=== PATIENT | male | born 1960 | race Caucasian/White ===

== ENCOUNTER 2023-04-30 17:07 | Outpatient (RCR) | payer BC, SELFPAY | END 2023-04-30 23:59 | disposition home or self-care (01) | LOC: RPT 17:07 | PROVIDERS: ATTENDING PHYSICIAN Physician Assistant Medical; PRIMARYCARE PHYSICIAN Family Medicine | DX: M48.062 Spinal stenosis, lumbar region with neurogenic claudication (principal); M54.16 Radiculopathy, lumbar region; G12.21 Amyotrophic lateral sclerosis; Z73.6 Limitation of activities due to disability; Z98.1 Arthrodesis status; Z47.89 Encounter for other orthopedic aftercare; M62.81 Muscle weakness (generalized) | CPT/HCPCS: 97110; 97140 ==

== ENCOUNTER 2023-06-02 15:58 | Outpatient (RCR) | payer MEDICARE, OTHER, SELFPAY | END 2023-06-02 23:59 | disposition home or self-care (01) | LOC: RPT 15:58 | PROVIDERS: ATTENDING PHYSICIAN Psychiatry & Neurology Neurology; OTHER PHYSICIAN Physician Assistant Medical; PRIMARYCARE PHYSICIAN Family Medicine | DX: M48.062 Spinal stenosis, lumbar region with neurogenic claudication (principal); M54.16 Radiculopathy, lumbar region; Z98.1 Arthrodesis status; Z73.6 Limitation of activities due to disability; Z47.89 Encounter for other orthopedic aftercare; M62.81 Muscle weakness (generalized) | CPT/HCPCS: 97110; 97140; 97163 ==

== ENCOUNTER 2023-07-03 14:59 | Outpatient (RCR) | payer MEDICARE, OTHER, SELFPAY | END 2023-07-03 23:59 | disposition home or self-care (01) | LOC: RPT 14:59 | PROVIDERS: ATTENDING PHYSICIAN Psychiatry & Neurology Neurology; OTHER PHYSICIAN Physician Assistant Medical; PRIMARYCARE PHYSICIAN Family Medicine | DX: Z47.89 Encounter for other orthopedic aftercare (principal); G12.21 Amyotrophic lateral sclerosis; M48.062 Spinal stenosis, lumbar region with neurogenic claudication; M48.061 Spinal stenosis, lumbar region without neurogenic claudication; M54.16 Radiculopathy, lumbar region; Z73.6 Limitation of activities due to disability; M62.81 Muscle weakness (generalized); Z98.1 Arthrodesis status | CPT/HCPCS: 97110; 97140; 97530 ==

== ENCOUNTER 2023-07-21 15:07 | Outpatient (RCR) | payer MEDICARE, OTHER, SELFPAY | END 2023-07-21 23:59 | disposition home or self-care (01) | LOC: RPT 15:07 | PROVIDERS: ATTENDING PHYSICIAN Psychiatry & Neurology Neurology; OTHER PHYSICIAN Physician Assistant Medical; PRIMARYCARE PHYSICIAN Family Medicine | DX: M48.062 Spinal stenosis, lumbar region with neurogenic claudication (principal); G12.21 Amyotrophic lateral sclerosis; M54.16 Radiculopathy, lumbar region; Z73.6 Limitation of activities due to disability; Z47.89 Encounter for other orthopedic aftercare; Z98.1 Arthrodesis status; M62.81 Muscle weakness (generalized) | CPT/HCPCS: 97110; 97140 ==

== ENCOUNTER → 2023-08-12 12:03 | Outpatient (REF) | payer MEDICARE, OTHER, SELFPAY ==
[2023-08-12 13:24] LABS: % Basophils 0.7 % (0-2); % Immature Granulocytes 0.7 % (0-0.5); % Lymphocytes 21.6 % (20.5-51.1); % Monocytes 7.1 % (1.7-9.3); % Neutrophils 68.9 % (42.2-75.2); Absolute Basophils 0.1 10^3/uL (0-0.2); Absolute Eosinophils 0.1 10^3/uL (0-0.7); Absolute Immature Granulocytes 0.1 10^3/uL (0-0.05); Absolute Lymphocytes 1.9 10^3/uL (1.2-3.4); Absolute Monocytes 0.6 10^3/uL (0.1-0.6); Absolute Neutrophils 6.1 10^3/uL (1.4-6.5); Hematocrit 43.4 % (39.0-52.0); Hemoglobin 14.6 g/dL (13.0-18.0); Mean Corp Hgb Conc. 33.6 g/dL (33.0-37.0); Mean Corpuscular Hgb 30.3 pg (27.0-31.0); Mean Platelet Volume 9.7 fL (7.4-10.4); Nucleated Red Blood Cells % 0 % (-); Platelet Count 242 10^3/uL (130-400); Red Blood Cell Count 4.82 10^6/uL (4.70-6.10); Red Cell Dist. Width 12.9 % (11.5-14.5); White Blood Cell Count 8.8 10^3/uL (4.8-10.8)
[2023-08-12 13:51] LABS: ALT (SGPT) 45 U/L (0-50); AST (SGOT) 43 U/L (17-59); Albumin 3.9 g/dl (3.5-5.0); Alkaline Phosphatase 76 U/L (38-126); Blood Urea Nitrogen 25 mg/dl (9-20); Calcium 9.5 mg/dl (8.4-10.2); Carbon Dioxide 29 mmol/L (22-30); Chloride 101 mmol/L (98-107); Glucose 119 mg/dl (70-99); Sodium 138 mmol/L (135-145); Total Bilirubin 0.5 mg/dl (0.2-1.3); Total Protein 6.6 g/dl (6.3-8.2); eGFR > 60.00
[2023-08-12 13:56] LABS: Potassium 4.2 mmol/L (3.5-5.1)
== END ==
LOC: REG 12:03
PROVIDERS: ATTENDING PHYSICIAN Psychiatry & Neurology Neurology; FAMILY PHYSICIAN Family Medicine
DX: R53.1 Weakness (principal)
CPT/HCPCS: 36415; 80053; 85025

== ENCOUNTER 2023-09-01 15:03 | Outpatient (RCR) | payer MEDICARE, OTHER, SELFPAY | END 2023-09-01 23:59 | disposition home or self-care (01) | LOC: RPT 15:03 | PROVIDERS: ATTENDING PHYSICIAN Psychiatry & Neurology Neurology; OTHER PHYSICIAN Physician Assistant Medical; PRIMARYCARE PHYSICIAN Family Medicine | DX: Z47.89 Encounter for other orthopedic aftercare (principal); M48.062 Spinal stenosis, lumbar region with neurogenic claudication; M54.16 Radiculopathy, lumbar region; Z73.6 Limitation of activities due to disability; G12.21 Amyotrophic lateral sclerosis; M62.81 Muscle weakness (generalized); Z98.1 Arthrodesis status | CPT/HCPCS: 97110; 97140 ==

== ENCOUNTER 2023-10-02 15:12 | Outpatient (RCR) | payer MEDICARE, OTHER, SELFPAY | END 2023-10-02 23:59 | disposition home or self-care (01) | LOC: RPT 15:12 | PROVIDERS: ATTENDING PHYSICIAN Psychiatry & Neurology Neurology; OTHER PHYSICIAN Physician Assistant Medical; PRIMARYCARE PHYSICIAN Family Medicine | DX: M48.062 Spinal stenosis, lumbar region with neurogenic claudication (principal); G12.21 Amyotrophic lateral sclerosis; M54.16 Radiculopathy, lumbar region; Z98.1 Arthrodesis status; Z73.6 Limitation of activities due to disability; Z47.89 Encounter for other orthopedic aftercare; M62.81 Muscle weakness (generalized) | CPT/HCPCS: 97110; 97140 ==

== ENCOUNTER 2023-10-30 15:20 | Outpatient (RCR) | payer MEDICARE, OTHER, SELFPAY | END 2023-10-30 23:59 | disposition home or self-care (01) | LOC: RPT 15:20 | PROVIDERS: ATTENDING PHYSICIAN Psychiatry & Neurology Neurology; OTHER PHYSICIAN Physician Assistant Medical; PRIMARYCARE PHYSICIAN Family Medicine | DX: M48.062 Spinal stenosis, lumbar region with neurogenic claudication (principal); G12.21 Amyotrophic lateral sclerosis; Z98.1 Arthrodesis status; Z73.6 Limitation of activities due to disability; M54.16 Radiculopathy, lumbar region; Z47.89 Encounter for other orthopedic aftercare; M62.81 Muscle weakness (generalized) | CPT/HCPCS: 97110; 97140 ==

== ENCOUNTER 2023-11-17 14:51 | Outpatient (RCR) | payer MEDICARE, OTHER, SELFPAY | END 2023-11-17 23:59 | disposition home or self-care (01) | LOC: RPT 14:51 | PROVIDERS: ATTENDING PHYSICIAN Psychiatry & Neurology Neurology; OTHER PHYSICIAN Physician Assistant Medical; PRIMARYCARE PHYSICIAN Family Medicine | DX: M48.062 Spinal stenosis, lumbar region with neurogenic claudication (principal); M54.16 Radiculopathy, lumbar region; G12.21 Amyotrophic lateral sclerosis; Z73.6 Limitation of activities due to disability; Z98.1 Arthrodesis status; Z47.89 Encounter for other orthopedic aftercare; M62.81 Muscle weakness (generalized) | CPT/HCPCS: 97110; 97140 ==

== ENCOUNTER 2024-01-01 14:48 | Outpatient (RCR) | payer MEDICARE, OTHER, SELFPAY | END 2024-01-01 23:59 | disposition home or self-care (01) | LOC: RPT 14:48 | PROVIDERS: ATTENDING PHYSICIAN Psychiatry & Neurology Neurology; OTHER PHYSICIAN Physician Assistant Medical; PRIMARYCARE PHYSICIAN Family Medicine | DX: M48.062 Spinal stenosis, lumbar region with neurogenic claudication (principal); G12.21 Amyotrophic lateral sclerosis; M54.16 Radiculopathy, lumbar region; Z98.1 Arthrodesis status; Z73.6 Limitation of activities due to disability; Z47.89 Encounter for other orthopedic aftercare; M62.81 Muscle weakness (generalized) | CPT/HCPCS: 97110; 97140 ==

== ENCOUNTER 2024-02-02 14:50 | Outpatient (RCR) | payer MEDICARE, OTHER, SELFPAY | END 2024-02-02 23:59 | disposition home or self-care (01) | LOC: RPT 14:50 | PROVIDERS: ATTENDING PHYSICIAN Psychiatry & Neurology Neurology; OTHER PHYSICIAN Physician Assistant Medical; PRIMARYCARE PHYSICIAN Family Medicine | DX: G12.21 Amyotrophic lateral sclerosis (principal); M48.062 Spinal stenosis, lumbar region with neurogenic claudication; M54.16 Radiculopathy, lumbar region; Z98.1 Arthrodesis status; Z47.89 Encounter for other orthopedic aftercare; Z73.6 Limitation of activities due to disability; M62.81 Muscle weakness (generalized) | CPT/HCPCS: 97110; 97140 ==

== ENCOUNTER 2024-03-04 14:52 | Outpatient (RCR) | payer MEDICARE, OTHER, SELFPAY | END 2024-03-04 23:59 | disposition home or self-care (01) | LOC: RPT 14:52 | PROVIDERS: ATTENDING PHYSICIAN Psychiatry & Neurology Neurology; OTHER PHYSICIAN Physician Assistant Medical; PRIMARYCARE PHYSICIAN Family Medicine | DX: Z47.89 Encounter for other orthopedic aftercare (principal); M48.062 Spinal stenosis, lumbar region with neurogenic claudication (principal); M54.16 Radiculopathy, lumbar region; G12.21 Amyotrophic lateral sclerosis; Z73.6 Limitation of activities due to disability; M62.81 Muscle weakness (generalized); Z98.1 Arthrodesis status | CPT/HCPCS: 97110; 97112; 97140; 97167; 97535 ==

== ENCOUNTER → 2024-03-12 12:10 | Outpatient (REF) | payer MEDICARE, OTHER, SELFPAY ==
[2024-03-12 13:32] LABS: Urine Albumin Negative (Neg - Trace); Urine Bilirubin Negative (Negative); Urine Color Yellow; Urine Glucose Negative (Negative); Urine Ketone Negative (Negative); Urine Leukocyte Negative (Negative); Urine Nitrite Negative (Negative); Urine Occult Blood Negative (Negative); Urine Specific Gravity 1.015 (<1.030); Urine Urobilinogen Negative (Neg - 1+)
[2024-03-12 13:33] LABS: Urine Character Clear (Clear)
== END ==
LOC: REG 12:10
PROVIDERS: ATTENDING PHYSICIAN Family Medicine
DX: R35.0 Frequency of micturition (principal)
CPT/HCPCS: 81003; 87086

== ENCOUNTER 2024-03-29 13:17 | Outpatient (RCR) | payer MEDICARE, OTHER, SELFPAY | END 2024-03-29 23:59 | disposition home or self-care (01) | LOC: ROT 13:17 | PROVIDERS: Psychiatry & Neurology Neurology; FAMILY PHYSICIAN Family Medicine | DX: M48.062 Spinal stenosis, lumbar region with neurogenic claudication (principal); G12.21 Amyotrophic lateral sclerosis; M54.16 Radiculopathy, lumbar region; Z73.6 Limitation of activities due to disability; Z98.1 Arthrodesis status | CPT/HCPCS: 36415; 80053; 85025; 97112; G0103 ==

== ENCOUNTER 2024-03-31 12:03 | Outpatient (RCR) | payer MEDICARE, OTHER, SELFPAY | END 2024-03-31 23:59 | disposition home or self-care (01) | LOC: RPT 12:03 | PROVIDERS: ATTENDING PHYSICIAN Psychiatry & Neurology Neurology; OTHER PHYSICIAN Physician Assistant Medical; PRIMARYCARE PHYSICIAN Family Medicine | DX: M48.062 Spinal stenosis, lumbar region with neurogenic claudication (principal); G12.21 Amyotrophic lateral sclerosis; M54.16 Radiculopathy, lumbar region; Z98.1 Arthrodesis status; Z73.6 Limitation of activities due to disability; Z47.89 Encounter for other orthopedic aftercare; M62.81 Muscle weakness (generalized) | CPT/HCPCS: 97110; 97140 ==

== ENCOUNTER 2024-04-29 12:11 | Outpatient (RCR) | payer MEDICARE, OTHER, SELFPAY | END 2024-04-29 23:59 | disposition home or self-care (01) | LOC: RPT 12:11 | PROVIDERS: ATTENDING PHYSICIAN Psychiatry & Neurology Neurology; OTHER PHYSICIAN Physician Assistant Medical; PRIMARYCARE PHYSICIAN Family Medicine | DX: M48.062 Spinal stenosis, lumbar region with neurogenic claudication (principal); G12.21 Amyotrophic lateral sclerosis; M54.16 Radiculopathy, lumbar region; Z73.6 Limitation of activities due to disability; Z98.1 Arthrodesis status; Z47.89 Encounter for other orthopedic aftercare; M62.81 Muscle weakness (generalized) | CPT/HCPCS: 97110; 97112; 97140 ==

== ENCOUNTER 2024-05-04 12:11 | Outpatient (RCR) | payer MEDICARE, OTHER, SELFPAY | END 2024-05-04 23:59 | disposition home or self-care (01) | LOC: ROT 12:11 | PROVIDERS: FAMILY PHYSICIAN Family Medicine | DX: M48.062 Spinal stenosis, lumbar region with neurogenic claudication (principal); G12.21 Amyotrophic lateral sclerosis; M54.16 Radiculopathy, lumbar region; Z73.6 Limitation of activities due to disability; Z98.1 Arthrodesis status | CPT/HCPCS: 97112 ==

== ENCOUNTER 2024-05-10 14:31 | Outpatient (RCR) | payer MEDICARE, OTHER, SELFPAY | END 2024-05-10 23:59 | disposition home or self-care (01) | LOC: RPT 14:31 | PROVIDERS: ATTENDING PHYSICIAN Psychiatry & Neurology Neurology; OTHER PHYSICIAN Physician Assistant Medical; PRIMARYCARE PHYSICIAN Family Medicine | DX: M48.062 Spinal stenosis, lumbar region with neurogenic claudication (principal); G12.21 Amyotrophic lateral sclerosis; M54.16 Radiculopathy, lumbar region; Z73.6 Limitation of activities due to disability; Z98.1 Arthrodesis status; Z47.89 Encounter for other orthopedic aftercare; M62.81 Muscle weakness (generalized) | CPT/HCPCS: 97010; 97112; 97140; 97530 ==

== ENCOUNTER → 2024-05-18 13:22 | Outpatient (REF) | payer MEDICARE, OTHER, SELFPAY ==
[2024-05-18 13:53] VITALS: BP 141/90; BP_SYST 98
[2024-05-18 14:17] VITALS: BP 143/66
== END ==
LOC: RADI 13:22
PROVIDERS: ATTENDING PHYSICIAN Physical Medicine & Rehabilitation; FAMILY PHYSICIAN Family Medicine
DX: M16.12 Unilateral primary osteoarthritis, left hip (principal); M25.552 Pain in left hip
CPT/HCPCS: 20610; 77002

== ENCOUNTER 2024-06-03 12:04 | Outpatient (RCR) | payer MEDICARE, OTHER, SELFPAY | END 2024-06-03 23:59 | disposition home or self-care (01) | LOC: ROT 12:04 | PROVIDERS: ATTENDING PHYSICIAN Nurse Practitioner Adult Health; FAMILY PHYSICIAN Family Medicine | DX: M48.062 Spinal stenosis, lumbar region with neurogenic claudication (principal); G12.21 Amyotrophic lateral sclerosis; M54.16 Radiculopathy, lumbar region; Z73.6 Limitation of activities due to disability; Z98.1 Arthrodesis status | CPT/HCPCS: 97010; 97112 ==

== ENCOUNTER 2024-06-17 10:46 | Outpatient (RCR) | payer MEDICARE, OTHER, SELFPAY | END 2024-06-17 23:59 | disposition home or self-care (01) | LOC: ROT 10:46 | PROVIDERS: ATTENDING PHYSICIAN Nurse Practitioner Adult Health; FAMILY PHYSICIAN Family Medicine | DX: M48.062 Spinal stenosis, lumbar region with neurogenic claudication (principal); G12.21 Amyotrophic lateral sclerosis; M54.16 Radiculopathy, lumbar region; Z73.6 Limitation of activities due to disability; Z98.1 Arthrodesis status | CPT/HCPCS: 97112; 97140 ==

== ENCOUNTER 2024-07-01 12:03 | Outpatient (RCR) | payer MEDICARE, OTHER, SELFPAY | END 2024-07-01 23:59 | disposition home or self-care (01) | LOC: RPT 12:03 | PROVIDERS: ATTENDING PHYSICIAN Psychiatry & Neurology Neurology; OTHER PHYSICIAN Physician Assistant Medical; PRIMARYCARE PHYSICIAN Family Medicine | DX: M48.062 Spinal stenosis, lumbar region with neurogenic claudication (principal); G12.21 Amyotrophic lateral sclerosis (principal); M54.16 Radiculopathy, lumbar region; Z73.6 Limitation of activities due to disability; M62.81 Muscle weakness (generalized); Z47.89 Encounter for other orthopedic aftercare; Z98.1 Arthrodesis status | CPT/HCPCS: 97140 ==

== ENCOUNTER 2024-07-05 13:23 | Outpatient (RCR) | payer MEDICARE, OTHER, SELFPAY | END 2024-07-08 23:59 | disposition home or self-care (01) | LOC: ROT 13:23 | PROVIDERS: ATTENDING PHYSICIAN Nurse Practitioner Adult Health; FAMILY PHYSICIAN Family Medicine | DX: M48.062 Spinal stenosis, lumbar region with neurogenic claudication (principal); G12.21 Amyotrophic lateral sclerosis; M54.16 Radiculopathy, lumbar region; Z73.6 Limitation of activities due to disability; Z98.1 Arthrodesis status | CPT/HCPCS: 97112; 97140 ==

== ENCOUNTER 2024-08-02 14:01 | Outpatient (RCR) | payer MEDICARE, OTHER, SELFPAY | END 2024-08-02 23:59 | disposition home or self-care (01) | LOC: RPT 14:01 | PROVIDERS: ATTENDING PHYSICIAN Psychiatry & Neurology Neurology; OTHER PHYSICIAN Physician Assistant Medical; PRIMARYCARE PHYSICIAN Family Medicine | DX: Z47.89 Encounter for other orthopedic aftercare (principal); G12.21 Amyotrophic lateral sclerosis; M48.062 Spinal stenosis, lumbar region with neurogenic claudication; M54.16 Radiculopathy, lumbar region; Z73.6 Limitation of activities due to disability; M62.81 Muscle weakness (generalized); Z98.1 Arthrodesis status | CPT/HCPCS: 97140 ==

== ENCOUNTER 2024-08-05 13:17 | Outpatient (RCR) | payer MEDICARE, OTHER, SELFPAY | END 2024-08-09 23:59 | disposition home or self-care (01) | LOC: ROT 13:17 | PROVIDERS: ATTENDING PHYSICIAN Nurse Practitioner Adult Health; FAMILY PHYSICIAN Family Medicine | DX: M48.062 Spinal stenosis, lumbar region with neurogenic claudication (principal); G12.21 Amyotrophic lateral sclerosis; M54.16 Radiculopathy, lumbar region; Z73.6 Limitation of activities due to disability; Z98.1 Arthrodesis status | CPT/HCPCS: 97112; 97140 ==

== ENCOUNTER 2024-08-30 13:08 | Outpatient (RCR) | payer MEDICARE, OTHER, SELFPAY | END 2024-08-30 23:59 | disposition home or self-care (01) | LOC: RPT 13:08 | PROVIDERS: ATTENDING PHYSICIAN Psychiatry & Neurology Neurology; OTHER PHYSICIAN Physician Assistant Medical; PRIMARYCARE PHYSICIAN Family Medicine | DX: Z47.89 Encounter for other orthopedic aftercare (principal); G12.21 Amyotrophic lateral sclerosis; M48.062 Spinal stenosis, lumbar region with neurogenic claudication; M54.16 Radiculopathy, lumbar region; Z73.6 Limitation of activities due to disability; M62.81 Muscle weakness (generalized); Z98.1 Arthrodesis status | CPT/HCPCS: 97140 ==

== ENCOUNTER 2024-09-30 14:00 | Outpatient (RCR) | payer MEDICARE, OTHER, SELFPAY | END 2024-10-02 13:38 | disposition home or self-care (01) | LOC: RPT 14:00 | PROVIDERS: ATTENDING PHYSICIAN Psychiatry & Neurology Neurology; OTHER PHYSICIAN Physician Assistant Medical; PRIMARYCARE PHYSICIAN Family Medicine | DX: Z47.89 Encounter for other orthopedic aftercare (principal); G12.21 Amyotrophic lateral sclerosis; M48.062 Spinal stenosis, lumbar region with neurogenic claudication; M54.16 Radiculopathy, lumbar region; Z73.6 Limitation of activities due to disability; M62.81 Muscle weakness (generalized); Z98.1 Arthrodesis status | CPT/HCPCS: 97112; 97140 ==

== ENCOUNTER 2024-10-07 12:36 | Outpatient (RCR) | payer MEDICARE, OTHER, SELFPAY | END 2024-10-07 23:59 | disposition home or self-care (01) | LOC: ROT 12:36 | PROVIDERS: ATTENDING PHYSICIAN Nurse Practitioner Adult Health; FAMILY PHYSICIAN Family Medicine | DX: M48.062 Spinal stenosis, lumbar region with neurogenic claudication (principal); G12.21 Amyotrophic lateral sclerosis; M54.16 Radiculopathy, lumbar region; Z73.6 Limitation of activities due to disability; M62.81 Muscle weakness (generalized); Z98.1 Arthrodesis status | CPT/HCPCS: 97112; 97140 ==

== ENCOUNTER 2024-11-01 15:15 | Outpatient (RCR) | payer MEDICARE, OTHER, SELFPAY | END 2024-11-01 23:59 | disposition home or self-care (01) | LOC: RPT 15:15 | PROVIDERS: ATTENDING PHYSICIAN Psychiatry & Neurology Neurology; OTHER PHYSICIAN Physician Assistant Medical; PRIMARYCARE PHYSICIAN Family Medicine | DX: Z47.89 Encounter for other orthopedic aftercare (principal); G12.21 Amyotrophic lateral sclerosis; M48.062 Spinal stenosis, lumbar region with neurogenic claudication; M54.16 Radiculopathy, lumbar region; Z73.6 Limitation of activities due to disability; M62.81 Muscle weakness (generalized); Z98.1 Arthrodesis status | CPT/HCPCS: 97140; 97530 ==

== ENCOUNTER 2024-11-22 13:23 | Outpatient (RCR) | payer MEDICARE, OTHER, SELFPAY | END 2024-11-22 23:59 | disposition home or self-care (01) | LOC: RPT 13:23 | PROVIDERS: ATTENDING PHYSICIAN Psychiatry & Neurology Neurology; OTHER PHYSICIAN Physician Assistant Medical; PRIMARYCARE PHYSICIAN Family Medicine | DX: Z47.89 Encounter for other orthopedic aftercare (principal); G12.21 Amyotrophic lateral sclerosis; M48.062 Spinal stenosis, lumbar region with neurogenic claudication; M54.16 Radiculopathy, lumbar region; Z73.6 Limitation of activities due to disability; M62.81 Muscle weakness (generalized); Z98.1 Arthrodesis status | CPT/HCPCS: 97112; 97140; 97530 ==

== ENCOUNTER 2024-12-02 14:14 | Outpatient (RCR) | payer MEDICARE, OTHER, SELFPAY | END 2024-12-02 23:59 | disposition home or self-care (01) | LOC: ROT 14:14 | PROVIDERS: ATTENDING PHYSICIAN Nurse Practitioner Adult Health; FAMILY PHYSICIAN Family Medicine | DX: M48.062 Spinal stenosis, lumbar region with neurogenic claudication (principal); G12.21 Amyotrophic lateral sclerosis; M54.16 Radiculopathy, lumbar region; Z73.6 Limitation of activities due to disability; M62.81 Muscle weakness (generalized); Z98.1 Arthrodesis status | CPT/HCPCS: 97112; 97140 ==

== ENCOUNTER 2024-12-06 12:15 | Outpatient (RCR) | payer MEDICARE, OTHER, SELFPAY | END 2024-12-06 23:59 | disposition home or self-care (01) | LOC: RPT 12:15 | PROVIDERS: ATTENDING PHYSICIAN Psychiatry & Neurology Neurology; OTHER PHYSICIAN Physician Assistant Medical; PRIMARYCARE PHYSICIAN Family Medicine | DX: Z47.89 Encounter for other orthopedic aftercare (principal); G12.21 Amyotrophic lateral sclerosis; M48.062 Spinal stenosis, lumbar region with neurogenic claudication; M54.16 Radiculopathy, lumbar region; Z73.6 Limitation of activities due to disability; M62.81 Muscle weakness (generalized); Z98.1 Arthrodesis status | CPT/HCPCS: 97112; 97140; 97530 ==

== ENCOUNTER 2024-12-30 14:06 | Outpatient (RCR) | payer MEDICARE, OTHER, SELFPAY | END 2024-12-30 23:59 | disposition home or self-care (01) | LOC: ROT 14:06 | PROVIDERS: ATTENDING PHYSICIAN Nurse Practitioner Adult Health; FAMILY PHYSICIAN Family Medicine | DX: M48.062 Spinal stenosis, lumbar region with neurogenic claudication (principal); G12.21 Amyotrophic lateral sclerosis; M54.16 Radiculopathy, lumbar region; Z73.6 Limitation of activities due to disability; Z98.1 Arthrodesis status; M62.81 Muscle weakness (generalized) | CPT/HCPCS: 97112; 97140 ==

== ENCOUNTER 2025-01-25 09:20 | Emergency (ER) | payer MEDICARE, OTHER, SELFPAY ==
[2025-01-25 09:23] VITALS: BP 134/83
[2025-01-25 11:03] VITALS: BP 140/105
--- NOTE | 2025-01-25 11:27 | ED.GENMED ---
History of Present Illness
General
Chief Complaint: Abdominal Symptoms
Time Seen by Provider: 01/25/25 10:14
History of Present Illness
History of Present Illness:
64-year-old male with history of ALS presenting to the emergency department for abdominal pain. Patient reports for the past several weeks he has been having some discomfort, however since has had increased bloating and pain particularly
to the left side. Denies any history of abdominal surgeries in the past. Notes and dry heaving, denies vomiting. Denies changes in stool. Denies fever. Denies chest pain or difficulty breathing. Denies additional acute medical complaints
Phy Exam
Physical Exam
Physical Exam:
General: Well-appearing, no clinical signs of dehydration, nontoxic and in no acute distress
HEENT: protecting airway
Neck: appears supple
CV: Normal heart rate, regular rhythm
Resp: No accessory muscle use, no increased work of breathing, lungs clear to auscultation bilaterally
Abd: Soft and non-distended, mild tenderness in left lower quadrant without rebound or guarding
Extremities: No deformities, chronic swelling bilaterally
Neuro: alert, chronic weakness in lower extremities from ALS
: deferred
Rectal: deferred
Psych: Normal affect
Skin: Intact
Course
Orders/Labs/Results
Orders:
Orders
01/25/25 11:10
CT Abd/pelvis W Iv Cont Urgent
Comment:
Reason For Exam: L-sided pain, hx ALS
01/25/25 11:46
Basic Metabolic Panel Urgent
Complete Blood Count/With Diff Urgent
Lipase Urgent
01/25/25 11:54
Urinalysis Reflex To Culture Urgent
Date Specimen was Collected: 01/25/25
Time Specimen was Collected: 11:53
Abnormal Lab Results
01/25/25
11:46
MCHC 31.8 L g/dL
(33.0-37.0)
Absolute Monos (auto) 0.9 H 10^3/uL
(0.1-0.6)
Lymphocytes % 19.9 L %
(20.5-51.1)
Monocytes % 10.0 H %
(1.7-9.3)
Creatinine 0.3 L mg/dL
(0.7-1.3)
01/25/25 11:46
01/25/25 11:46
Vital Signs
Initial and Last Documented VS:
Initial Vital Signs
Temp Pulse Resp BP Pulse Ox
98.5 F 95 16 134/83 99
01/25/25 09:23 01/25/25 09:23 01/25/25 09:23 01/25/25 09:23 01/25/25 09:23
Last Documented Vital Signs
Temp Pulse Resp BP Pulse Ox
98.1 F 85 16 143/80 98
01/25/25 14:38 01/25/25 14:38 01/25/25 14:38 01/25/25 14:00 01/25/25 14:15
MDM/Problems Addressed
MDM/Problems Addressed:
64-year-old male with history of ALS presenting for abdominal pain and bloating. Vital signs are normal.
On exam patient is resting comfortably, nontoxic. On examination of the abdomen, mild distention however is soft to palpation. Focal tenderness to the left side of the abdomen with suspicion for possible diverticulitis. Kidney stone is also a
consideration. However patient denies any urinary complaints. Plan for laboratory analysis and CT abdominal imaging. Patient declining any pain medication at this time
14:30 - Patient's labs are unremarkable and CT without acute intra-abdominal process. At this time feel stable for discharge. Patient remains hemodynamically stable. Advise close outpatient follow-up. Return precautions discussed and patient
verbalized understanding
*Pulse Oximetry
SaO2: 99
Oxygen Mode of Delivery: Room air
Patient hypoxic: no
*Critical Care Note
Total Time (30-74mins, 75-104mins- exclusive of procedures): Not Applicable
ED Attending Note
-
Portions of this chart may have been created with voice recognition software.� Occasional wrong word or��sound alike� substitutions may have occurred due to the inherent limitations of voice recognition software.
Discharge Plan
Departure
Prescriptions:
No Action
esomeprazole magnesium [Nexium] 20 mg Capsule,Delayed Release(Dr/Ec)
20 mg PO DAILY
multivitamin Tablet
1 tab PO DAILY
ascorbic acid (vitamin C) [Vitamin C] 500 mg Tablet
500 mg PO DAILY
rosuvastatin 5 mg Tablet
5 mg PO DAILY
mecobalamin (vitamin B12) 1,000 mcg Tablet,Chewable
1,000 mcg PO DAILY
sennosides [senna] 8.6 mg Tablet
17.2 mg PO BID Qty: 30 0RF
acetaminophen 325 mg Tablet
650 mg PO Q4HPRN PRN (Reason: mild pain) Qty: 60 0RF
Rx Instructions:
Do NOT exceed >4000 mg daily while on [place].
1 [place] tab = 325 mg of Tylenol.
docusate sodium 100 mg Capsule
100 mg PO BID Qty: 30 0RF
hydrocodone-acetaminophen 5-325 mg tablet
1 tab PO Q6H PRN (Reason: moderate-severe pain) Qty: 30 0RF
Rx Instructions:
1 tab for moderate pain, 2 if severe.
Dx lumbar fusion. Ongoing therapy.
pregabalin [Lyrica] 75 mg capsule
75 mg PO BID Qty: 15 0RF
Rx Instructions:
Take twice daily x5 days, then daily x5 days, then STOP.
cephalexin 500 mg capsule
500 mg PO QID Qty: 20 0RF
Saccharomyces boulardii [Florastor] 250 mg capsule
250 mg PO BID Qty: 10 0RF
Rx Instructions:
Over the counter. Take while on antibiotic.
If unavailable, choose another probiotic.
Referrals:
Holland Rachel DO [Family Provider, Family Practice]
Interventions
Interventions:
*Risk Screen - Suicide Last Done: 01/25/25 09:23
*General Assessment Last Done: 01/25/25 09:23
*Neglect/Abuse Screening Last Done: 01/25/25 09:23
*ED- Fall Risk Assessment Last Done: 01/25/25 14:21
*ED COVID-19 Vaccine History Last Done: 01/25/25 14:21
XJ-Ecbvms-Sslnwznmck Assessment Last Done: 01/25/25 10:00
Discharge Date and Time
Print Language: SWEDISH
[2025-01-25 12:00] VITALS: BP 124/79
[2025-01-25 12:09] LABS: Hematocrit 48.7 % (39.0-52.0); Hemoglobin 15.5 g/dL (13.0-18.0); Mean Corp Hgb Conc. 31.8 g/dL (33.0-37.0); Mean Corpuscular Volume 89.0 fL (80.0-94.0); Nucleated Red Blood Cells % 0 % (-); Platelet Count 294 10^3/uL (130-400); Red Cell Dist. Width 13.7 % (11.5-14.5)
[2025-01-25 12:11] LABS: Urine Character Clear (Clear)
[2025-01-25 12:31] LABS: Blood Urea Nitrogen 12 mg/dl (9-20); Calcium 9.8 mg/dl (8.4-10.2); Carbon Dioxide 29 mmol/L (22-30); Chloride 103 mmol/L (98-107); Glucose 92 mg/dl (70-99); Lipase 71 U/L (23-300); Sodium 140 mmol/L (135-145); eGFR > 60.00
[2025-01-25 13:54] VITALS: BP 133/90
[2025-01-25 14:00] VITALS: BP 143/80
== END 2025-01-25 15:20 | disposition home or self-care (01) ==
LOC: EMR 09:20
PROVIDERS: EMERGENCY PHYSICIAN Student in an Organized Health Care Education/Training Program; FAMILY PHYSICIAN Family Medicine
DX: R10.9 Unspecified abdominal pain (principal); G12.21 Amyotrophic lateral sclerosis
CPT/HCPCS: 99284; 74177; 80048; 81003; 83690; 85025; Q9967

== ENCOUNTER 2025-01-27 09:00 | Outpatient (RCR) | payer MEDICARE, OTHER, SELFPAY | END 2025-02-01 12:35 | disposition home or self-care (01) | LOC: RST 09:00 | PROVIDERS: ATTENDING PHYSICIAN Nurse Practitioner Gerontology; FAMILY PHYSICIAN Family Medicine | DX: G12.21 Amyotrophic lateral sclerosis (principal); R13.12 Dysphagia, oropharyngeal phase; R47.1 Dysarthria and anarthria; R49.8 Other voice and resonance disorders | CPT/HCPCS: 92522; 92526; 92610 ==

== ENCOUNTER 2025-01-31 08:00 | Outpatient (RCR) | payer MEDICARE, OTHER, SELFPAY | END 2025-02-01 12:32 | disposition home or self-care (01) | LOC: RPT 08:00 | PROVIDERS: ATTENDING PHYSICIAN Psychiatry & Neurology Neurology; OTHER PHYSICIAN Physician Assistant Medical; PRIMARYCARE PHYSICIAN Family Medicine | DX: Z47.89 Encounter for other orthopedic aftercare (principal); G12.21 Amyotrophic lateral sclerosis; M48.062 Spinal stenosis, lumbar region with neurogenic claudication; M54.16 Radiculopathy, lumbar region; Z73.6 Limitation of activities due to disability; M62.81 Muscle weakness (generalized); Z98.1 Arthrodesis status | CPT/HCPCS: 97140; 97530 ==

== ENCOUNTER 2025-01-31 14:11 | Outpatient (RCR) | payer MEDICARE, OTHER, SELFPAY | END 2025-01-31 23:59 | disposition home or self-care (01) | LOC: ROT 14:11 | PROVIDERS: ATTENDING PHYSICIAN Nurse Practitioner Adult Health; FAMILY PHYSICIAN Family Medicine | DX: M48.062 Spinal stenosis, lumbar region with neurogenic claudication (principal); M54.16 Radiculopathy, lumbar region; G12.21 Amyotrophic lateral sclerosis; M62.81 Muscle weakness (generalized); Z73.6 Limitation of activities due to disability; Z98.1 Arthrodesis status | CPT/HCPCS: 97140 ==

== ENCOUNTER 2025-02-21 09:27 | Outpatient (RCR) | payer MEDICARE, OTHER, SELFPAY | END 2025-02-21 23:59 | disposition home or self-care (01) | LOC: RST 09:27 | PROVIDERS: ATTENDING PHYSICIAN Nurse Practitioner Gerontology; FAMILY PHYSICIAN Family Medicine | DX: G12.21 Amyotrophic lateral sclerosis (principal); M48.062 Spinal stenosis, lumbar region with neurogenic claudication; R13.12 Dysphagia, oropharyngeal phase; M54.16 Radiculopathy, lumbar region; Z73.6 Limitation of activities due to disability; R47.1 Dysarthria and anarthria; R49.8 Other voice and resonance disorders; Z98.1 Arthrodesis status | CPT/HCPCS: 92507; 92526 ==

== ENCOUNTER 2025-02-24 14:11 | Outpatient (RCR) | payer MEDICARE, OTHER, SELFPAY | END 2025-02-24 23:59 | disposition home or self-care (01) | LOC: RPT 14:11 | PROVIDERS: ATTENDING PHYSICIAN Psychiatry & Neurology Neurology; OTHER PHYSICIAN Physician Assistant Medical; PRIMARYCARE PHYSICIAN Family Medicine | DX: Z47.89 Encounter for other orthopedic aftercare (principal); G12.21 Amyotrophic lateral sclerosis; M48.062 Spinal stenosis, lumbar region with neurogenic claudication; M54.16 Radiculopathy, lumbar region; Z73.6 Limitation of activities due to disability; M62.81 Muscle weakness (generalized); Z98.1 Arthrodesis status | CPT/HCPCS: 97140; 97530 ==

== ENCOUNTER 2025-02-28 08:13 | Outpatient (RCR) | payer MEDICARE, OTHER, SELFPAY | END 2025-02-28 23:59 | disposition home or self-care (01) | LOC: ROT 08:13 | PROVIDERS: ATTENDING PHYSICIAN Nurse Practitioner Adult Health; FAMILY PHYSICIAN Family Medicine | DX: M48.062 Spinal stenosis, lumbar region with neurogenic claudication (principal); M54.16 Radiculopathy, lumbar region; Z73.6 Limitation of activities due to disability; M62.81 Muscle weakness (generalized); R13.12 Dysphagia, oropharyngeal phase; Z98.1 Arthrodesis status; G12.21 Amyotrophic lateral sclerosis; R47.1 Dysarthria and anarthria; R49.8 Other voice and resonance disorders | CPT/HCPCS: 97140; 97535 ==

== ENCOUNTER → 2025-03-09 12:46 | Outpatient (REF) | payer MEDICARE, OTHER, SELFPAY ==
[2025-03-09 13:05] VITALS: BP 149/97; BP_SYST 91
[2025-03-09 14:20] VITALS: BP 136/77
== END ==
LOC: RADI 12:46
PROVIDERS: ATTENDING PHYSICIAN Physical Medicine & Rehabilitation; FAMILY PHYSICIAN Family Medicine
DX: M16.12 Unilateral primary osteoarthritis, left hip (principal); M25.552 Pain in left hip
CPT/HCPCS: 20610; 77002

== ENCOUNTER 2025-03-30 07:24 | Outpatient (RCR) | payer MEDICARE, OTHER, SELFPAY | END 2025-03-30 23:59 | disposition home or self-care (01) | LOC: RPT 07:24 | PROVIDERS: ATTENDING PHYSICIAN Psychiatry & Neurology Neurology; OTHER PHYSICIAN Physician Assistant Medical; PRIMARYCARE PHYSICIAN Family Medicine | DX: Z47.89 Encounter for other orthopedic aftercare (principal); G12.21 Amyotrophic lateral sclerosis; M48.062 Spinal stenosis, lumbar region with neurogenic claudication; M54.16 Radiculopathy, lumbar region; Z73.6 Limitation of activities due to disability; M62.81 Muscle weakness (generalized); Z98.1 Arthrodesis status | CPT/HCPCS: 92612; 97140; 97530 ==

== ENCOUNTER 2025-05-04 14:58 | Outpatient (RCR) | payer MEDICARE, OTHER, SELFPAY | END 2025-05-04 23:59 | disposition home or self-care (01) | LOC: RPT 14:58 | PROVIDERS: ATTENDING PHYSICIAN Psychiatry & Neurology Neurology; OTHER PHYSICIAN Physician Assistant Medical; PRIMARYCARE PHYSICIAN Family Medicine | DX: Z47.89 Encounter for other orthopedic aftercare (principal); G12.21 Amyotrophic lateral sclerosis; M48.062 Spinal stenosis, lumbar region with neurogenic claudication; M54.16 Radiculopathy, lumbar region; Z73.6 Limitation of activities due to disability; M62.81 Muscle weakness (generalized); Z98.1 Arthrodesis status | CPT/HCPCS: 80053; 85025; 97140; 97530 ==